=== PATIENT | male | born 1985 | race Caucasian/White ===

== ENCOUNTER 2016-10-21 20:40 | Emergency (ER) | payer OTHER ==
[~2016-10-21] VITALS: Ht 175.3 cm; Wt 74.5 kg
[~2016-10-21 20:40] MED LIST: ALBU8.5H3 INH; AZIT250T94 PO; CETI10CA PO; GUAI120S26 PO; IBUP-1542 PO
[2016-10-21 21:05] VITALS: Ht 175.3 cm; Wt 74.5 kg
--- NOTE | 2016-10-21 22:43 | ERA ---
ER Documentation Chief Complaint Date/Time DATE: 10/21/16 TIME: 22:43 Chief Complaint Shortness of breath HPI The patient is a 37-year-old male, presenting to the ER because of shortness of breath for the last 2 hours prior to arrival while he was watching TV. He felt better now, denies similar symptoms previously. He was seen in the ER yesterday and today for acute bronchitis with Zithromax, Flonase, Zyrtec and cough medicine. He denies any chest pain, pleuritic chest pain, chest pain with exertion of vomiting or diaphoresis, denies abdominal pain, vomiting, dysuria, diarrhea Past medical history: Anxiety Past surgical history: None ROS All systems reviewed and are negative except as per history of present illness. Medications Home Meds Discontinued Scripts Azithromycin* (Zithromax*) 250 Mg Tablet, 250 MG PO .ZPACK DIRECTED, #6 TAB TAKE 500 MG (2 TABS) THE FIRST DAY THEN 250 MG (1 TAB) DAYS 2-5 Prov:QUINTON OTERO NP 10/20/16 Albuterol Sulfate* (Proair HFA*) 8.5 Gm Hfa.aer.ad, 2 PUFF INH Q4H Y for WHEEZING AND SOB, #1 INHALER Prov:QUINTON OTERO NP 10/20/16 Ibuprofen* (Motrin*) 600 Mg Tab, 600 MG PO Q6H Y for PAIN AND OR ELEVATED TEMP, #30 TAB Prov:QUINTON OTERO NP 10/20/16 Cetirizine Hcl* (Zyrtec*) 10 Mg Capsule, 10 MG PO DAILY, #30 TAB.CHEW Prov:QUINTON OTERO NP 10/20/16 Mqowwihleez-Y-Lwnlfdtpdb Hb* (Guaifenesin* DM Syrup) 120 Ml Syrup, 10 ML PO Q4H Y for COUGH, #120 ML Prov:QUINTON OTERO NP 10/20/16 Allergies Allergies: Coded Allergies: No Known Allergy (Unverified , 10/21/16) PMhx/Soc Medical and Surgical Hx: pt denies Medical Hx, pt denies Surgical Hx History of Surgery: No Anesthesia Reaction: No Hx Neurological Disorder: No Hx Respiratory Disorders: No Hx Cardiac Disorders: No Hx Psychiatric Problems: No Hx Miscellaneous Medical Probl: No Hx Alcohol Use: No Hx Substance Use: No Hx Tobacco Use: Yes Smoking Status: Current every day smoker Physical Exam Vitals Vital Signs Date Time Temp Pulse Resp B/P Pulse Ox O2 Delivery O2 Flow Rate FiO2 10/22/16 01:59 97.6 79 18 108/54 100 Room Air 10/21/16 21:05 98.2 81 20 130/82 97 Physical Exam Const: No acute distress. Head: Atraumatic. Eyes: Normal Conjunctiva. ENT: Normal External Ears, Nose and Mouth. Neck: Full range of motion. No meningismus. Resp: Clear to auscultation bilaterally. Cardio: Regular rate and rhythm. Abd: Soft, non distended, normal bowel sounds, non tender. Skin: No petechiae or rashes. Back: No midline or flank tenderness. Ext: No cyanosis, or edema. Neur: Awake and alert. No focal deficit Psych: Normal Mood and Affect. Result Diagram: 10/21/16 2321 10/21/16 2321 Results 24 hrs Laboratory Tests Test 10/21/16 23:21 White Blood Count 9.210^3/ul Red Blood Count 4.9110^6/ul Hemoglobin 14.2g/dl Hematocrit 40.8% Mean Corpuscular Volume 83.1fl Mean Corpuscular Hemoglobin 28.9pg Mean Corpuscular Hemoglobin Concent 34.8g/dl Red Cell Distribution Width 12.5% Platelet Count 69649^3/UL Mean Platelet Volume 9.9fl Neutrophils % 60.3% Lymphocytes % 28.7% Monocytes % 7.2% Eosinophils % 2.7% Basophils % 1.0% Nucleated Red Blood Cells % 0.0/100WBC Neutrophils # 5.510^3/ul Lymphocytes # 2.610^3/ul Monocytes # 0.710^3/ul Eosinophils # 0.310^3/ul Basophils # 0.110^3/ul Nucleated Red Blood Cells # 0.010^3/ul D-Dimer 443.37ng/ml D-Dimer Comment Sodium Level 143mmol/L Potassium Level 4.0mmol/L Chloride Level 100mmol/L Carbon Dioxide Level 28mmol/L Anion Gap 19 Blood Urea Nitrogen 8mg/dl Creatinine 0.79mg/dl Glucose Level 118mg/dl Calcium Level 9.1mg/dl Urine Opiates Screen Negative Urine Barbiturates Negative Urine Amphetamines Screen Negative Urine Benzodiazepines Screen Negative Urine Cocaine Screen Negative Urine Cannabinoids Negative Ethyl Alcohol Level < 10.0mg/dl Procedures/[facility] [address] [address] Radiology Main Line: [phone] DIAGNOSTIC IMAGING REPORT Patient: EMILIA HICKMAN : 1985 Age: 31 Sex: M MR #: [id number] DOS: 10/21/16 2300 Ordering MD: MARY MISHRA MD Location: E/R Room/Bed: PROCEDURE: Portable chest x-ray. CLINICAL INDICATION: 31-year-old male. Shortness of breath.. TECHNIQUE: Portable AP view of the chest. COMPARISON: None. FINDINGS: Cardiomediastinal contours are normal. Lungs are clear.. Negative for pleural effusion or pneumothorax.. No acute bony abnormality. IMPRESSION: Negative for evidence of acute chest process. RPTAT: HCTS Physician Jaquelin Date Time Electronically viewed and signed by Physician Jaquelin on 10/21/2016 23: 44 CS/ CC: MARY MISHRA MD MEDICAL MAKING DECISION: The patient is a 37-year-old male, presenting to the ER because of acute dyspnea most likely due to acute anxiety. He has been stable in emergency department and is stable for outpatient follow-up The differential diagnoses considered include but are not limited to asthma, COPD, pneumonia, pulmonary embolus, pleural effusion, congestive heart failure. Departure Diagnosis: Primary Impression: Dyspnea Additional Impression: Anxiety Comments The patient's blood pressure was elevated (>120/80) but appears stable without evidence of hypertension emergency or urgency. The patient was counseled about the risks of hypertension and urged to pursue outpatient monitoring and therapy within a week with their primary care physician. MARY MISHRA MD Oct 21, 2016 22:43
[2016-10-21 23:41] LABS: BASOPHIL # 0.1 10^3/ul (0.0-0.1); EOSINOPHILS # 0.3 10^3/ul (0.0-0.5); EOSINOPHILS % 2.7 % (0.0-7.0); HEMATOCRIT 40.8 % (42.0-52.0); HEMOGLOBIN 14.2 g/dl (14.0-18.0); LYMPHOCYTES # 2.6 10^3/ul (0.8-2.9); LYMPHOCYTES % 28.7 % (15.0-51.0); MEAN CORPUSCULAR HEMOGLOBIN 28.9 pg (29.0-33.0); MEAN CORPUSCULAR HGB CONC 34.8 g/dl (32.0-37.0); MEAN CORPUSCULAR VOLUME 83.1 fl (82.0-101.0); MEAN PLATELET VOLUME 9.9 fl (7.4-10.4); MONOCYTE # 0.7 10^3/ul (0.3-0.9); MONOCYTES % 7.2 % (0.0-11.0); NEUTROPHIL # 5.5 10^3/ul (1.6-7.5); NEUTROPHILS % 60.3 % (39.0-77.0); PLATELET COUNT 265 10^3/UL (140-415); RED BLOOD COUNT 4.91 10^6/ul (4.70-6.10); RED CELL DISTRIBUTION WIDTH 12.5 % (11.5-14.5); WHITE BLOOD COUNT 9.2 10^3/ul (4.8-10.8)
--- NOTE | 2016-10-21 23:44 | RADRPT ---
PROCEDURE: Portable chest x-ray. CLINICAL INDICATION: 31-year-old male. Shortness of breath.. TECHNIQUE: Portable AP view of the chest. COMPARISON: None. FINDINGS: Cardiomediastinal contours are normal. Lungs are clear.. Negative for pleural effusion or pneumothorax.. No acute bony abnormality. IMPRESSION: Negative for evidence of acute chest process. RPTAT: HCTS Physician Jaquelin Date Time Electronically viewed and signed by Karly Stone Physician on 10/21/2016 23:44 CS/
[2016-10-22 00:03] LABS: D-DIMER 443.37 ng/ml (<460)
[2016-10-22 00:05] LABS: ANION GAP 19 (8-16); BLOOD UREA NITROGEN 8 mg/dl (7-20); CALCIUM 9.1 mg/dl (8.4-10.2); CARBON DIOXIDE 28 mmol/L (21-31); CHLORIDE 100 mmol/L (97-110); CREATININE 0.79 mg/dl (0.61-1.24); GLUCOSE 118 mg/dl (70-220); SODIUM 143 mmol/L (135-144)
[2016-10-22 00:08] LABS: BARBITURATES Negative (NEGATIVE); BENZODIAZEPINES Negative (NEGATIVE); CANNABINOIDS Negative (NEGATIVE); COCAINE Negative (NEGATIVE); ETHANOL < 10.0 mg/dl; OPIATES Negative (NEGATIVE)
[2016-10-22 01:59] VITALS: BP 108/54; PULSE 79; RESP 18; TEMP 97.6
== END 2016-10-22 02:20 | disposition home or self-care (01) ==
LOC: E/R 20:40 → EDBD 20:40 → E/R 10-22 02:20
DX: R06.00 Dyspnea, unspecified (principal); F41.9 Anxiety disorder, unspecified; F17.210 Nicotine dependence, cigarettes, uncomplicated
CPT/HCPCS: 36415; 71010; 80048; 80306; 80307; 85025; 85378; 93005; Z7502

== ENCOUNTER 2016-11-01 15:20 | Emergency (ER) | payer OTHER ==
[~2016-11-01] VITALS: Ht 175.3 cm; Wt 76.0 kg
[~2016-11-01 15:20] MED LIST changes: +CYCL-319 PO
[2016-11-01 15:22] VITALS: Ht 175.3 cm; Wt 76.0 kg
--- NOTE | 2016-11-01 18:45 | ERD ---
ER Documentation Chief Complaint Date/Time DATE: 11/01/16 TIME: 18:42 Chief Complaint Complains of pain to both eyes x 1 week HPI This patient is a 31-year-old male with no significant medical history presenting to the emergency department with complaints of vitreous floaters in his eyes bilaterally. He has noticed these intermittently for 1 week and states they are worse when he looks around rapidly. Symptoms are mild. He denies any visual changes, double vision, seeing taylor, feeling curtain going over his eyes, fevers, chills, redness to his eyes, or other symptoms currently. ROS All systems reviewed and are negative except as per history of present illness. Medications Home Meds Active Scripts Cyclobenzaprine Hcl* (Cyclobenzaprine Hcl*) 10 Mg Tablet, 10 MG PO TID, #15 TAB Prov:QUINTON OTERO SHADOWGRAPH SCALE OPERATOR 10/27/16 Ibuprofen* (Motrin*) 600 Mg Tab, 600 MG PO Q6H Y for PAIN AND OR ELEVATED TEMP, #30 TAB Prov:QUINTON OTERO SHADOWGRAPH SCALE OPERATOR 10/27/16 Allergies Allergies: Coded Allergies: No Known Allergy (Unverified , 10/26/16) PMhx/Soc Medical and Surgical Hx: pt denies Medical Hx, pt denies Surgical Hx History of Surgery: No Anesthesia Reaction: No Hx Neurological Disorder: No Hx Respiratory Disorders: No Hx Cardiac Disorders: No Hx Psychiatric Problems: No Hx Miscellaneous Medical Probl: No Hx Alcohol Use: No (Denies) Hx Substance Use: No (Denies) Hx Tobacco Use: No Smoking Status: Never smoker Physical Exam Vitals Vital Signs Date Time Temp Pulse Resp B/P Pulse Ox O2 Delivery O2 Flow Rate FiO2 11/01/16 15:22 98.8 96 20 136/65 96 Physical Exam Const: Nontoxic, well-appearing male in no acute distress. Head: Atraumatic Eyes: Normal Conjunctiva. EOMs intact bilaterally. No visual acuity deficits noted ENT: Normal External Ears, Nose and Mouth. Neck: Full range of motion..~ No meningismus. Skin: No petechiae or rashes Back: No midline or flank tenderness Ext: No cyanosis, or edema Neur: Awake and alert Psych: Normal Mood and Affect Procedures/MDM 31-year-old male presenting to the emergency department with complaints of vitreous floaters in his eyes bilaterally intermittently for the past week. He denies any visual changes, double vision, seeing black spots. I have low suspicion for conjunctivitis, periorbital cellulitis, retinal detachment, acute angle-closure glaucoma, or other emergencies. The patient was given counseling regarding vitreous floaters and he may use ligy-jio-rxtvavo eyedrops as needed for eye irritation. He understood the discharge plan and diagnosis. Strict ER return precautions were discussed. Patient was stable prior to discharge. Departure Diagnosis: Primary Impression: Vitreous floaters of both eyes Condition: Fair Patient Instructions: What Are Flashes and Floaters? Referrals: COMMUNITY CLINICS YOU HAVE RECEIVED A MEDICAL SCREENING EXAM AND THE RESULTS INDICATE THAT YOU DO NOT HAVE A CONDITION THAT REQUIRES URGENT TREATMENT IN THE EMERGENCY DEPARTMENT. FURTHER EVALUATION AND TREATMENT OF YOUR CONDITION CAN WAIT UNTIL YOU ARE SEEN IN YOUR DOCTORS OFFICE WITHIN THE NEXT 1-2 DAYS. IT IS YOUR RESPONSIBILITY TO MAKE AN APPOINTMENT FOR FOLOW-UP CARE. IF YOU HAVE A PRIMARY DOCTOR --you should call your primary doctor and schedule an appointment IF YOU DO NOT HAVE A PRIMARY DOCTOR YOU CAN CALL OUR PHYSICIAN REFERRAL HOTLINE AT IF YOU CAN NOT AFFORD TO SEE A PHYSICIAN YOU CAN CHOSE FROM THE FOLLOWING [facility] [address] [facility]. [facility] [address] [facility]. [facility] [address] [facility] [facility] [address] [facility]. [facility] [address] [facility] [facility]. [address] [facility]. [facility] Hours: Mon - Fri 9:00 AM - 5:00 PM Additional Instructions: Follow up with your PCP within the next 1-3 days for a repeat evaluation. If you require a referral to a specialist, your Primary Care Provider may be able to provide this for you. In most patient cases, a referral is not required. If you have further questions regarding this matter, please ask your Primary Care Provider. Return the the emergency department immediately if symptoms worsen or change. If you have any questions regarding medications, ask your pharmacist or us before you leave. If any adverse reactions, occur while taking your medications, discontinue the treatment and return to the emergency department immediately. If any new or worsening symptoms, uncontrolled fevers, or other unexplained symptoms occur, return to the emergency department immediately. Take your medications as directed, and complete the entire course of treatment. JELLY JAMES PA-C Nov 01, 2016 18:45
== END 2016-11-01 19:46 | disposition left against medical advice (07) ==
LOC: FTE 15:20
DX: H43.393 Other vitreous opacities, bilateral (principal)
CPT/HCPCS: 99282

== ENCOUNTER 2016-11-09 14:25 | Emergency (ER) | payer SELFPAY ==
[~2016-11-09] VITALS: Wt 76.0 kg
[~2016-11-09 14:25] MED LIST changes: -ALBU8.5H3 INH; -AZIT250T94 PO; -CETI10CA PO; -GUAI120S26 PO
== END 2016-11-09 16:25 | disposition left against medical advice (07) ==
LOC: FTE 14:25
DX: Z53.21 Procedure and treatment not carried out due to patient leaving prior to being seen by health care provider (principal)

== ENCOUNTER 2016-11-10 21:18 | Emergency (ER) | payer SELFPAY ==
[~2016-11-10] VITALS: Ht 175.3 cm; Wt 75.5 kg
[2016-11-10 22:04] VITALS: Ht 175.3 cm; Wt 75.5 kg
== END 2016-11-10 22:44 | disposition left against medical advice (07) ==
LOC: FTE 21:18
DX: Z53.21 Procedure and treatment not carried out due to patient leaving prior to being seen by health care provider (principal)

== ENCOUNTER 2016-11-15 14:58 | Emergency (ER) | payer OTHER ==
[~2016-11-15] VITALS: Ht 180.3 cm; Wt 77.0 kg
[2016-11-15 15:00] VITALS: Ht 180.3 cm; Wt 77.0 kg
--- NOTE | 2016-11-15 16:03 | ERD ---
ER Documentation Chief Complaint Date/Time DATE: 11/15/16 TIME: 16:00 Chief Complaint SOB X MANY WEEKS WHEN SMOKING CIGARETTES HPI This a 31-year-old male who presents emergency department today complaining of intermittent shortness of breath. States he thinks he has anxiety. States he "wants his lungs checked out".States he smokesCigarettes regularly but he is trying to quit. States he also has left ankle pain and thinks he injured it while skateboarding. States he is not currently working because he has some bursitis in his leg and he is going to physical therapy. Denies any cough, fevers or chills. ROS All systems reviewed and are negative except as per history of present illness. Medications Home Meds Active Scripts Naproxen* (Naprosyn*) 500 Mg Tablet, 500 MG PO BID Y for PAIN AND/OR INFLAMMATION, #30 TAB Prov:DAISY CASTELLON PA-C 11/15/16 Cyclobenzaprine Hcl* (Cyclobenzaprine Hcl*) 10 Mg Tablet, 10 MG PO TID, #15 TAB Prov:QUINTON OTERO NP 10/27/16 Ibuprofen* (Motrin*) 600 Mg Tab, 600 MG PO Q6H Y for PAIN AND OR ELEVATED TEMP, #30 TAB Prov:QUINTON OTERO NP 10/27/16 Allergies Allergies: Coded Allergies: No Known Allergy (Unverified , 10/26/16) PMhx/Soc History of Surgery: No Anesthesia Reaction: No Hx Neurological Disorder: No Hx Respiratory Disorders: No Hx Cardiac Disorders: No Hx Psychiatric Problems: No Hx Miscellaneous Medical Probl: No Hx Alcohol Use: No (Denies) Hx Substance Use: No (Denies) Hx Tobacco Use: Yes Smoking Status: Current every day smoker Physical Exam Vitals Vital Signs Date Time Temp Pulse Resp B/P Pulse Ox O2 Delivery O2 Flow Rate FiO2 11/15/16 15:00 98.9 86 18 132/84 98 Physical Exam Const: Talkative, no acute distress Head: Atraumatic Eyes: Normal Conjunctiva ENT: Normal External Ears, Nose and Mouth. Neck: Full range of motion..~ No meningismus. Resp: Clear to auscultation bilaterally. No absent breath sounds. No wheezing. Cardio: Regular rate and rhythm, no murmurs Abd: Soft, non tender, non distended. Normal bowel sounds Skin: No petechiae or rashes Back: No midline or flank tenderness Ext: No cyanosis, or edema. Left ankle with no obvious deformity. No effusion. No ecchymosis. Tenderness to palpation syndesmosis. Pulses 2+. Distal neurovascularly intact. Neur: Awake and alert Psych: Normal Mood and Affect Results 24 hrs DIAGNOSTIC IMAGING REPORT Patient: EMILIA HICKMAN : 1985 Age: 31 Sex: M MR #: [id number] DOS: 11/15/16 0000 Ordering MD: DAISY CASTELLON PA-C Location: FTE Room/Bed: PROCEDURE: XR Ankle. CLINICAL INDICATION: 31 years of age, male. Skateboarding injury. Pain.. TECHNIQUE: Three views of the left ankle. COMPARISON: None available. FINDINGS: There may be minimal depression of the articular surface at the medial aspect of the talar dome that may be due to an age indeterminate osteochondral injury. No other evidence of acute fracture identified. Normal alignment on this non- stressed view. Negative for a sizable ankle joint effusion. Negative for significant soft tissue swelling.. IMPRESSION: Possible small osteochondral lesion medial talar dome that is age indeterminate. If symptoms persist, this could better be evaluated with MRI. No other evidence of acute fracture.. RPTAT: HCTS Physician Jaquelin Date Time Electronically viewed and signed by Physician Jaquelin on 11/15/2016 16: 30 CS/ CC: DAISY CASTELLON PA-C Procedures/MDM This is a 31-year-old male who presents the emergency department today complaining of intermittent shortness of breath and left ankle pain. Patient denies any shortness of breath currently and he may be having anxiety related symptoms. Patient was counseled on smoking cessation for greater than 3 minutes. Patient is afebrile and otherwise well-appearing. His oxygen saturations 98%. I do not feel the patient requires a chest x-ray at this time. Upon review of patient's medical records patient had a chest x-ray for same complaints less than 1 month ago and his chest x-ray was negative. I do have low suspicion for pneumonia, PE, abscess, pleural effusion, pneumothorax. Patient is very talkative in the exam room. Patient was also complaining of left ankle pain that he thinks he injured while skateboarding. I did agree to do an x-ray given the patient's report of trauma. Per the radiology report images of the left ankle shows a possible small osteochondral lesion at the medial talar dome that is age-indeterminate. There is no evidence of acute fracture. No joint effusion. No soft tissue swelling. Patient's ankle pain appears to be somewhat chronic in nature. I do not feel that he requires crutches or narcotics for pain. Patient was given a prescription for Naprosyn. He was instructed to follow-up with his primary care doctor for referral for physical therapy for his ankle as well as to help address his anxiety symptoms. At this time the patient is stable for discharge and outpatient management. Patient should follow up with their PCP in the next 1-2 days. They may return to the emergency department sooner for any persistent or worsening of symptoms. Patient understood and agreed with the plan. Departure Diagnosis: Primary Impression: Shortness of breath Additional Impression: Ankle pain Chronicity: chronic Laterality: left Qualified Code: M25.572 - Chronic pain of left ankle Condition: DAISY Funez PA-C Nov 15, 2016 16:03
--- NOTE | 2016-11-15 16:30 | RADRPT ---
PROCEDURE: XR Ankle. CLINICAL INDICATION: 31 years of age, male. Skateboarding injury. Pain.. TECHNIQUE: Three views of the left ankle. COMPARISON: None available. FINDINGS: There may be minimal depression of the articular surface at the medial aspect of the talar dome that may be due to an age indeterminate osteochondral injury. No other evidence of acute fracture identi fied. Normal alignment on this non-stressed view. Negative for a sizable ankle joint effusion. Neg ative for significant soft tissue swelling.. IMPRESSION: Possible small osteochondral lesion medial talar dome that is age indeterminate. If symptoms persist , this could better be evaluated with MRI. No other evidence of acute fracture.. RPTAT: HCTS Physician Jaquelin Date Time Electronically viewed and signed by Physician Jaquelin on 11/15/2016 16:30 /
[2016-11-15] MEDS ORDERED: NAPR-260 PO (16:34)
[2016-11-16] MEDS ORDERED: LORA1TAB PO (10:06)
== END 2016-11-15 16:43 | disposition home or self-care (01) ==
LOC: FTE 14:58
DX: R06.02 Shortness of breath (principal); M25.572 Pain in left ankle and joints of left foot; F17.210 Nicotine dependence, cigarettes, uncomplicated
CPT/HCPCS: 73610; Z7502

== ENCOUNTER 2016-11-16 09:26 | Emergency (ER) | payer OTHER ==
[~2016-11-16] VITALS: Ht 162.6 cm; Wt 72.0 kg
[~2016-11-16 09:26] MED LIST changes: +NAPR-260 PO
[2016-11-16 09:28] VITALS: Ht 162.6 cm; Wt 72.0 kg
--- NOTE | 2016-11-16 10:04 | ERD ---
ER Documentation Chief Complaint Date/Time DATE: 11/16/16 TIME: 10:02 Chief Complaint palpitations onset 1 hr ago HPI 31-year-old male who presented emergency department for palpitations started an hour. Denies sweating. Stated that he has been on a lot of stress for the past few days. Denies headache, dizziness, blurry vision, neck pain, shoulder pain, chest pain , abdominal pain, nausea, vomiting, diarrhea, constipation, loss of bowel control, urinary symptoms, trauma, numbness or tingling sensation, recent travel , difficulty breathing, shortness of breath, recent exposure to any illness, recent antibiotics in the last 3 months, fever, chills. Denies auditory/visual hallucinations/delusions. Not suicidal. Not homicidal. Has the capacity to decide for himself. Has good support system at home. No known drug allergies. No past medical history. No surgical history. No family history of heart attack before age 50. No family history of stroke before the age of 50. Social: Not working at this time. Smokes half a pack of cigarettes a day. Occasional drink alcoholic beverages. Denies use of illegal drugs. Physical exam is unremarkable. EKG was done and revealed sinus tachycardia with a ventricular rate of 109 bpm. No evidence of ischemia. No evidence of acute myocardial infarction. Treatment: Ativan 1 mg 1 p.o. plan of care was discharged patient in follow-up with his primary care physician the next 48-72 hours. Also prescribed Ativan 1 mg with 7 tablets. ROS All systems reviewed and are negative except as per history of present illness. Medications Home Meds Active Scripts Lorazepam* (Lorazepam*) 1 Mg Tablet, 1 MG PO Q8, #3 TAB Prov:DANY TORRES 11/16/16 Naproxen* (Naprosyn*) 500 Mg Tablet, 500 MG PO BID Y for PAIN AND/OR INFLAMMATION, #30 TAB Prov:DAISY CASTELLON PA-C 11/15/16 Cyclobenzaprine Hcl* (Cyclobenzaprine Hcl*) 10 Mg Tablet, 10 MG PO TID, #15 TAB Prov:QUINTON OTERO NP 10/27/16 Ibuprofen* (Motrin*) 600 Mg Tab, 600 MG PO Q6H Y for PAIN AND OR ELEVATED TEMP, #30 TAB Prov:QUINTON OTERO NP 10/27/16 Allergies Allergies: Coded Allergies: No Known Allergy (Unverified , 10/26/16) PMhx/Soc History of Surgery: No Anesthesia Reaction: No Hx Neurological Disorder: No Hx Respiratory Disorders: No Hx Cardiac Disorders: No Hx Psychiatric Problems: No Hx Miscellaneous Medical Probl: No Hx Alcohol Use: No (Denies) Hx Substance Use: No (Denies) Hx Tobacco Use: Yes Smoking Status: Current every day smoker Physical Exam Vitals Vital Signs Date Time Temp Pulse Resp B/P Pulse Ox O2 Delivery O2 Flow Rate FiO2 11/16/16 09:28 109 18 133/84 99 Physical Exam CONSTITUTIONAL: Well-appearing; well-nourished; in no apparent distress. HEAD: Normocephalic; atraumatic. EYES: Conjunctiva clear, sclera non-icteric, EOM intact. PERRL Ears: Hearing intact. EACs clear, TMs non-bulging, non-inflamed, translucent & mobile, ossicles normal appearance, No obstructions, no erythema, no discharges Nose: No obstructions. No polyps. No external lesions. Mucosa non-inflamed. No external lesions, septum and turbinates normal. No rhinorrhea. No discharges. Frontal sinus is non-tender to palpation. Maxillary sinus is non-tender to palpation. MOUTH: Moist mucous membranes, no lesion, no obstructions, no vesicles, no thrush, patent airway Throat: Uvula in midline. Right tonsil is +1 with no erythema, no exudate. Left tonsil is +1 with no erythema, no exudate. Tolerating secretions well. Good gag reflex. Patent airway. Neck: Supple, without lesions, bruits, or adenopathy. No mass. Thyroid non- enlarged and non-tender to palpation. CHEST: Symmetrical chest. Respirations even and not labored. No retractions noted. CARDIOVASCULAR: Normal S1, S2. RRR. No murmurs, gallops. RESPIRATORY: Normal chest excursion with respiration; breath sounds clear and equal bilaterally; no wheezes, rhonchi, or rales. Breathing even and unlabored. Speaking in clear, full, and complete sentences w/ ease. ABDOMEN: Normal bowel sounds normal. Soft, round, non-distended, non-guarding, no tenderness, no rebound, no organomegaly, no masses, no pulsating abdominal mass. No hernia. No peritoneal signs. : No CVA tenderness. BACK: Symmetrical shoulder. Spine is midline without deformity, tenderness. No evidence of trauma or deformity. PELVIS: Stable pelvis. No evidence of trauma or deformity. MUSCULOSKELETAL: Normal gait and station. No misalignment, asymmetry, crepitation, defects, tenderness, masses, effusions, decreased range of motion, instability, atrophy or abnormal strength or tone in the head, neck, spine, ribs , pelvis or extremities. No calf tenderness. NEUROVASCULAR: Distal pulses are present. Pedal pulse are present, equal, and normal. Capillary refills are < 2 seconds. NEUROLOGIC: Alert and oriented x4. Speaks full and clear sentences. Cranial Nerves II-XII normal. Sensation to pain, touch, and proprioception normal. Grossly unremarkable. No neurologic deficits. Romberg test is negative. PSYCHOLOGICAL: The patients mood and manner are appropriate. No hallucinations , delusions. Not SI. Not HI. Has the capacity to decide for self SKIN: Normal for age and ethnicity; warm; dry; good turgor; no apparent lesions or exudates. No rashes, hives, discoloration. Intact. Results 24 hrs Current Medications Medications (Trade) Dose Ordered Sig/Joaquin Route PRN Reason Start Time Stop Time Status Last Admin Dose Admin Lorazepam (Ativan) 1 mg ONCE ONCE PO 11/16/16 10:30 11/16/16 10:30 DC 11/16/16 10:08 Procedures/MDM Examination: Unremarkable examination except Disease process, medical treatment was explained to the patient and family member. They verbalized understanding and agreed with the diagnostic tests, medical treatment, and follow-up care. EKG: EKG was done and revealed sinus tachycardia with a ventricular rate of 109 bpm. No evidence of ischemia. No evidence of acute myocardial infarction. Treatment: Ativan 1 mg 1 p.o. plan of care was discharged patient in follow-up with his primary care physician the next 48-72 hours. Also prescribed Ativan 1 mg with 7 tablets. Re-evaluation: Denies headache, dizziness, blurry vision, neck pain, shoulder pain, chest pain, back pain, abdominal pain, nausea, vomiting. No episode of emesis in the emergency department. Alert and oriented 4. Speaks full and clear sentences. Respirations even and unlabored. Lung sounds clear to auscultation. Active bowel sounds. There is no right upper/right lower/ epigastric/left upper/left lower abdominal tenderness and light and deep palpation. Negative on Rovsings sign. Negative [place] sign. Able to jump 5 times without developing right-sided abdominal pain. No peritoneal signs. Ambulatory with steady gait. No neurovascular deficits. No neurological deficits. Skin appears normal. Consultation: None. Differential diagnosis: Acute myocardial infarction versus acute coronary syndrome versus chest wall pain versus pneumonia versus anxiety. Medical decision making: Discharge with a final diagnosis of anxiety. Medications prescribed are the following: Ativan. Patient and family member are made aware of the side effects and adverse reactions of the medications prescribed. Instructed on when to seek emergent and medical attention in case allergic/anaphylactic reactions or severe side effects and or adverse reactions to medications. Patient and family member verbalized understanding. Patient instructed Instructed to follow-up with his PCP in 24-48 hours. Instructed to Call 911 for chest pain, shortness of breath. Advised to come back here in ED as soon as possible for severity of symptoms which includes but not limited to: any new symptoms; shortness of breath/difficulty of breathing; cardiovascular changes; severe gastrointestinal symptoms; signs and symptoms of bleeding and or infection; signs of compartment syndrome/neurovascular changes; neurological changes/deficits. Patient and family member verbalized understanding. Upon discharge, patient is alert and oriented x 4, speaks full and clear sentences, denies pain, has no neurological deficits, has no neurovascular deficits, difficulty of breathing. Breathing even and unlabored. Lung sounds are clear to auscultation. Not in distress. Appears comfortable. Ambulatory with steady gait. Appears satisfied with care provided here in ED. Departure Diagnosis: Primary Impression: Palpitations Additional Impression: Anxiety Condition: Stable Additional Instructions: Instructed to follow-up with his PCP in 24-48 hours. Instructed to Call 911 for chest pain, shortness of breath. Advised to come back here in ED as soon as possible for severity of symptoms which includes but not limited to: any new symptoms; shortness of breath/difficulty of breathing; cardiovascular changes; severe gastrointestinal symptoms; signs and symptoms of bleeding and or infection; signs of compartment syndrome/neurovascular changes; neurological changes/deficits. Patient and family member verbalized understanding. DANY TORRES Nov 16, 2016 10:04
[2016-11-16] MEDS ORDERED: LORA1TAB PO (10:06)
[2016-11-16] MEDS ORDERED: LORAZEPAM 1 MG TAB PO ONE (10:30)
== END 2016-11-16 10:18 | disposition home or self-care (01) ==
LOC: FTE 09:26
DX: R00.2 Palpitations (principal); F41.9 Anxiety disorder, unspecified; F17.210 Nicotine dependence, cigarettes, uncomplicated
CPT/HCPCS: 93005; Z7502; Z7610

== ENCOUNTER 2017-04-05 19:52 | Emergency (ER) | END 2017-04-05 21:15 | disposition left against medical advice (07) ==

== ENCOUNTER 2017-04-20 17:15 | Emergency (ER) | END 2017-04-20 22:11 | disposition home or self-care (01) ==

== ENCOUNTER 2018-08-06 11:21 | Emergency (ER) | payer MEDICAID, OTHER ==
[~2018-08-06] VITALS: Ht 170.2 cm; Wt 77.1 kg
[~2018-08-06 11:21] MED LIST changes: -CYCL-319 PO; +CYCL10TA7 PO; +LISI10TA2 PO; +LORA1TAB PO; -NAPR-260 PO; +NAPR-985 PO
[2018-08-06 11:24] VITALS: Ht 170.2 cm; Wt 77.1 kg
--- NOTE | 2018-08-06 12:19 | ERD ---
ER Documentation Chief Complaint Chief Complaint suicidal ideation , wants to cut himself with knife , lac on rt pinky HPI This is a 33-year-old male with no underlying past medical history. The patient indicates he recently returned to [place] from [place]. When he was in [place] he had a psychiatrist as he states he was having very bad anxiety. He indicates that over the past several months he is been feeling very depressed and hopeless as he is undergoing a significant amount of financial difficulties. The patient stated yesterday evening he was experiencing suicidal thoughts and ideations. He stated he wanted to kill himself by stabbing himself. He stated he cut his right pinky with a knife. He stated he also called his father to say belae. His father lives in [place] and his father pleaded with him to go to the hospital to seek help. The patient denies any illicit drug use. He uses medicinal marijuana. He denies alcohol use. He states he is never attempted suicide in the past. ROS All systems reviewed and are negative except as per history of present illness. Medications Home Meds Active Scripts Lisinopril* (Lisinopril*) 10 Mg Tablet, 10 MG PO DAILY, #30 TAB Prov:LENCHO REDMAN PA-C 04/20/17 Lorazepam* (Lorazepam*) 1 Mg Tablet, 1 MG PO Q8, #3 TAB Prov:DANY TORRES 11/16/16 Naproxen* (Naprosyn*) 500 Mg Tablet, 500 MG PO BID PRN for PAIN AND/OR INFLAMMATION, #30 TAB Prov:DAISY CASTELLON PA-C 11/15/16 Cyclobenzaprine Hcl* (Cyclobenzaprine Hcl*) 10 Mg Tablet, 10 MG PO TID, #15 TAB Prov:QUINTON OTERO NP 10/27/16 Ibuprofen* (Motrin*) 600 Mg Tab, 600 MG PO Q6H PRN for PAIN AND OR ELEVATED TEMP, #30 TAB Prov:QUINTON OTERO NP 10/27/16 Allergies Allergies: Coded Allergies: No Known Allergy (Unverified , 10/26/16) PMhx/Soc Medical and Surgical Hx: pt denies Medical Hx, pt denies Surgical Hx History of Surgery: No Anesthesia Reaction: No Hx Neurological Disorder: No Hx Respiratory Disorders: No Hx Cardiac Disorders: No Hx Psychiatric Problems: No Hx Miscellaneous Medical Probl: No Hx Alcohol Use: Yes Hx Substance Use: Yes (MARAJUANA) Hx Tobacco Use: Yes (PACK/DAY) Smoking Status: Current every day smoker Physical Exam Vitals Vital Signs Date Temp Pulse Resp B/P (MAP) Pulse Ox O2 O2 Flow FiO2 Time Delivery Rate 08/06/18 97.8 78 18 153/102 100 11:24 (119) Physical Exam Constitutional:Well-developed. Well-nourished. HEENT:Normocephalic. Atraumatic.Pupils were equal round reactive to light. Moist mucous membranes.No tonsillar exudates. Neck: No nuchal rigidity. No lymphadenopathy. No posterior cervical spine tenderness or step-offs. Respiratory: Not using accessory muscles of respiration.Lungs were clear to auscultation bilaterally. No rhonchi. No rales. No wheezing. Cardiovascular: Regular rate regular rhythm.No murmurs. No rubs were appreciated.S1, S2 normal. Distal pulses are palpable 2+ bilaterally. GI: Abdomen was soft. Nontender. Non Distended. No pulsatile abdominal masses or bruits. No rebound. No guarding. Bowel sounds were present and normal. Muscle skeletal: Full range of motion of both the upper and lower extremities bilaterally.Normal muscle tone.No assymetrical calf tenderness or swelling. Skin: No petechia, no purpura. No lesions on the palms or the soles of the feet. No maculopapular rash. Facial laceration over the right distal phalanx of the fifth digit with no exposure of the flexor extensor tendon, on the palmar surface. NEURO: Patient was alert, awake, orientated x3.No facial droop. Gait observed and normal with no ataxia.Speech had regular rate and rhythm. No focal neurological deficits. PSYCH: Patient was very polite compliant. Patient did express suicidal thoughts and ideations. No auditory tactile visual hallucinations. Results 24 hrs Laboratory Tests Test 08/06/18 12:05 White Blood Count Pending Red Blood Count Pending Hemoglobin Pending Hematocrit Pending Mean Corpuscular Volume Pending Mean Corpuscular Hemoglobin Pending Mean Corpuscular Hemoglobin Concent Pending Red Cell Distribution Width Pending Platelet Count Pending Mean Platelet Volume Pending Procedures/MDM The patient presented to the emergency department with an active suicidal ideation. My differential diagnosis included but was not limited to major depressive disorder, normal despondency, bipolar disorder, schizophrenia, anxiety disorder, borderline personality disorder, antisocial personality dis order, organic mental disorder, bereavement or alcohol or drug abuse. Ancillary lab work was obtained including blood alcohol level, drug screen and serum toxicology panel. The patient was provided a safe environment while in the emergency department with appropriate supervision. The patient will be seen and evaluated by the tele-psychiatrist. Departure Diagnosis: Primary Impression: Suicidal ideation Condition: KELLY Lopez MD August 06, 2018 12:19
--- NOTE | 2018-08-06 12:33 | PSY ---
Date/Time of Note Date/Time of Note DATE: 08/06/18 TIME: 15:31 Psychiatric Subjective Eval Consent Pt consented to telemedicine: Yes Subjective Evaluation Patient location: emergency Chief Complaint: suicidal ideation , wants to cut himself with knife , lac on rt pinky History of present illness HPI: 33 yo male clearly tells MD he wants to kill himself via stabbing self with his knife. Admits to thc use. Admits to depression. Denies psychosis Past Psych Hx: + ho suicide and admits PMHx: deniess meds: denies nkda MSE: cooperative, depressed, normal speech, organized, no delusions or avh +SI Imp: 33 yo male with si vol psych admit utox Medical history Problems Medical Problems: (1) Acute bronchitis Status: Acute (2) Ankle pain Status: Acute (3) Anxiety Status: Acute (4) Anxiety Status: Acute (5) Back pain Status: Acute (6) Dyspnea Status: Acute (7) Hypertension Status: Acute (8) Palpitations Status: Acute (9) Patient left after triage Status: Acute (10) Patient left without being seen Status: Acute (11) Patient left without being seen Status: Acute (12) Patient left without being seen Status: Acute (13) Shortness of breath Status: Acute (14) Suicidal ideation Status: Acute (15) Vitreous floaters of both eyes Status: Acute Allergies: Coded Allergies: No Known Allergy (Unverified , 10/26/16) Psychiatric Objective Eval Mental Status Examination: Laboratory Results Laboratory Tests Test 08/06/18 12:04 08/06/18 12:05 Urine Color COLORLESS Urine Clarity CLEAR Urine pH 6.0 Urine Specific [place] 1.001 Urine Ketones NEGATIVE mg/dL Urine Nitrite NEGATIVE mg/dL Urine Bilirubin NEGATIVE mg/dL Urine Urobilinogen NEGATIVE mg/dL Urine Leukocyte Esterase NEGATIVE Janeth/ul Urine Hemoglobin NEGATIVE mg/dL Urine Glucose NEGATIVE mg/dL Urine Total Protein NEGATIVE mg/dl White Blood Count 7.8 10^3/ul Red Blood Count 5.07 10^6/ul Hemoglobin 15.0 g/dl Hematocrit 43.7 % Mean Corpuscular Volume 86.2 fl Mean Corpuscular Hemoglobin 29.6 pg Mean Corpuscular Hemoglobin Concent 34.3 g/dl Red Cell Distribution Width 12.8 % Platelet Count 289 10^3/UL Mean Platelet Volume 9.8 fl Immature Granulocytes % 0.100 % Neutrophils % 59.5 % Lymphocytes % 26.4 % Monocytes % 10.0 % Eosinophils % 2.6 % Basophils % 1.4 % Nucleated Red Blood Cells % 0.0 /100WBC Immature Granulocytes # 0.010 10^3/ul Neutrophils # 4.7 10^3/ul Lymphocytes # 2.1 10^3/ul Monocytes # 0.8 10^3/ul Eosinophils # 0.2 10^3/ul Basophils # 0.1 10^3/ul Nucleated Red Blood Cells # 0.0 10^3/ul Assessment and Plan Recommendation/Plan Multiple antipsychotics: No Discharge Disposition: Psychiatric inpatient Legal Status: Voluntary YANDY MURPHY August 06, 2018 12:33
[2018-08-06] MEDS ORDERED: BUPR-75 PO (16:05)
--- NOTE | 2018-08-06 18:54 | QN ---
Documentation Comment Psychiatric Observation Note: Indication: Suicidal ideation Duration: Greater than 4 hours Family history: As documented in original HPI The patient was observed with serial exams over the above timeframe. The patient continued to be well-appearing, and observation continued without complication. All other needs have been met during emergency department stay. The patient has had a medical screening examination is medically cleared for psychiatric placement. Routine psychiatric medications ordered: Not requested by telemetry medicine psychiatry Hold status: Telemetry medicine psychiatry has recommended voluntary psychiatric placement Placement status: Pending placement. DENIZ DRIVER MD August 06, 2018 18:54
[2018-08-06 21:24] VITALS: BP 116/64; PULSE 53; RESP 16
[2018-08-07] MEDS ORDERED: IBUP800T48 PO (21:11)
[2018-08-07] MEDS ORDERED: CYCL10TA7 PO (21:11)
== END 2018-08-06 21:24 ==
LOC: E/R 11:21
DX: R45.851 Suicidal ideations (principal); F17.210 Nicotine dependence, cigarettes, uncomplicated
CPT/HCPCS: 36415; 80053; 80307; 81003; 85025; 85610; 85730

== ENCOUNTER 2018-08-07 20:32 | Emergency (ER) | payer MEDICAID ==
[~2018-08-07] VITALS: Ht 175.3 cm; Wt 78.0 kg
[~2018-08-07 20:32] MED LIST changes: +BUPR-75 PO; -CYCL10TA7 PO; -IBUP-1542 PO; -LISI10TA2 PO; -LORA1TAB PO; -NAPR-985 PO
[2018-08-07 20:34] VITALS: BP 148/84; PULSE 98; RESP 18; Ht 175.3 cm; Wt 78.0 kg
[2018-08-07] MEDS ORDERED: KETOROLAC 30 MG INJ IM STA (21:00)
[2018-08-07] MEDS ORDERED: IBUP800T48 PO (21:11)
[2018-08-07] MEDS ORDERED: CYCL10TA7 PO (21:11)
--- NOTE | 2018-08-07 21:12 | ERD ---
ER Documentation Chief Complaint Chief Complaint states stiff neck x 1 day, denies trauma also c/o right hip pain HPI 33-year-old male who states his neck hurt today after doing push-ups. He denies any other trauma. He has not taken any medication for his pain. Also states he has a history of bursitis in his right hip and states that he has pain there as well he is requesting prescription for Motrin to help with these symptoms. No injury or trauma. He is ambulatory. No fevers. ROS All systems reviewed and are negative except as per history of present illness. Medications Home Meds Active Scripts Ibuprofen* (Motrin*) 800 Mg Tab, 800 MG PO Q6, #30 TAB Prov:BUSTER VALENCIA PA-C 08/07/18 Cyclobenzaprine Hcl* (Cyclobenzaprine Hcl*) 10 Mg Tablet, 10 MG PO BID, #15 TAB Prov:BUSTER VALENCIA PA-C 08/07/18 Reported Medications Bupropion Hcl* (Wellbutrin XL*) 150 Mg Tab.sr.24h, 150 MG PO DAILY, TAB.SA 08/06/18 Discontinued Scripts Lisinopril* (Lisinopril*) 10 Mg Tablet, 10 MG PO DAILY, #30 TAB Prov:LENCHO REDMAN PA-C 04/20/17 Lorazepam* (Lorazepam*) 1 Mg Tablet, 1 MG PO Q8, #3 TAB Prov:DANY TORRES 11/16/16 Naproxen* (Naprosyn*) 500 Mg Tablet, 500 MG PO BID PRN for PAIN AND/OR INFLAMMATION, #30 TAB Prov:DAISY CASTELLON PA-C 11/15/16 Cyclobenzaprine Hcl* (Cyclobenzaprine Hcl*) 10 Mg Tablet, 10 MG PO TID, #15 TAB Prov:QUINTON OTERO NP 10/27/16 Ibuprofen* (Motrin*) 600 Mg Tab, 600 MG PO Q6H PRN for PAIN AND OR ELEVATED TEMP, #30 TAB Prov:QUINTON OTERO NP 10/27/16 Allergies Allergies: Coded Allergies: No Known Allergy (Unverified , 08/06/18) PMhx/Soc History of Surgery: Yes (L hip fx repair L orbit fx) Anesthesia Reaction: No Hx Neurological Disorder: No Hx Respiratory Disorders: No Hx Cardiac Disorders: No Hx Psychiatric Problems: No Hx Miscellaneous Medical Probl: Yes (bursitis of R hip) Hx Alcohol Use: Yes Hx Substance Use: Yes (MARAJUANA) Hx Tobacco Use: Yes (PACK/DAY) Smoking Status: Current every day smoker FmHx Family History: No diabetes Physical Exam Vitals Vital Signs Date Temp Pulse Resp B/P (MAP) Pulse Ox O2 O2 Flow FiO2 Time Delivery Rate 08/07/18 98.5 98 18 148/84 98 20:34 (105) Physical Exam INITIAL VITAL SIGNS: Reviewed by me GENERAL: Awake, alert and oriented x 4, well appearing, nontoxic, speaking in full sentences. No acute distress HEAD: Atraumatic NECK: Supple. No masses. Full range of motion. No meningismus. No midline tenderness. EYES: EOMI. PERRL. RESPIRATORY: Clear to auscultation bilaterally. Symmetric chest wall rise. No wheezing or rales. No accessory muscle use. CV: Regular rate and rhythm. No murmurs, rubs, or gallops. EXTREMITIES: No clubbing or cyanosis. No edema. Moving all extremities normally. BACK: No midline tenderness to palpation. No step-offs. Results 24 hrs Current Medications Medications Dose Sig/Joaquin Start Time Status Last (Trade) Ordered Route PRN Stop Time Admin Dose Reason Admin Ketorolac 30 mg ONCE STAT 08/07/18 DC 08/07/18 Tromethamine IM 21:00 21:07 (Toradol) 08/07/18 21:01 Procedures/MDM Patient has cervical strain as well as flareup of bursitis in the right hip. He was given Toradol and prescription for ibuprofen and Flexeril. Patient counseled regarding my diagnostic impression and care plan. Prior to discharge all questions answered. Pt agrees with treatment plan and understands strict return precautions. Pt is instructed to follow up with primary care provider within 24-48 hours. Precautionary instructions provided including instructions to return to the ER if not improving or for any worsening or changing symptoms or concerns. Departure Diagnosis: Primary Impression: Bursitis Additional Impression: Cervical strain Condition: Stable Patient Instructions: Neck Sprain/Strain Additional Instructions: Call your primary care doctor TOMORROW for an appointment during the next 1-2 days.See the doctor sooner or return here if your condition worsens before your appointment time. BUSTER VALENCIA PA-C August 07, 2018 21:12
== END 2018-08-07 21:30 | disposition home or self-care (01) ==
LOC: FTE 20:32
DX: S16.1XXA Strain of muscle, fascia and tendon at neck level, initial encounter (principal); F17.210 Nicotine dependence, cigarettes, uncomplicated; M70.71 Other bursitis of hip, right hip; X58.XXXA Exposure to other specified factors, initial encounter; Y92.9 Unspecified place or not applicable; Y93.9 Activity, unspecified
CPT/HCPCS: 96372; J1885; Z7502

== ENCOUNTER 2018-08-09 23:32 | Emergency (ER) | payer MEDICAID ==
[~2018-08-09] VITALS: Wt 76.7 kg
[~2018-08-09 23:32] MED LIST changes: +CYCL10TA7 PO; +IBUP800T48 PO
--- NOTE | 2018-08-10 00:59 | ERD ---
ER Documentation Chief Complaint Chief Complaint suicidal ideation: plans to 'stab myself'. hx anxiety, no hi no hallucinati HPI The patient is a 33-year-old male, presenting to the ER because of suicidal ideation, plan to stop himself, he was admitted to psychiatric hospital a week ago, is not taking the medication. He denies auditory/visual examination, homicidal ideation. He smokes and drinks and does marijuana Past medical history: Anxiety, hypertension, depression ROS All systems reviewed and are negative except as per history of present illness. Medications Home Meds Active Scripts Ibuprofen* (Motrin*) 800 Mg Tab, 800 MG PO Q6, #30 TAB Prov:BUSTER VALENCIA PA-C 08/07/18 Cyclobenzaprine Hcl* (Cyclobenzaprine Hcl*) 10 Mg Tablet, 10 MG PO BID, #15 TAB Prov:BUSTER VALENCIA PA-C 08/07/18 Reported Medications Bupropion Hcl* (Wellbutrin XL*) 150 Mg Tab.sr.24h, 150 MG PO DAILY, TAB.SA 08/06/18 Discontinued Scripts Lisinopril* (Lisinopril*) 10 Mg Tablet, 10 MG PO DAILY, #30 TAB Prov:LENCHO REDMAN PA-C 04/20/17 Lorazepam* (Lorazepam*) 1 Mg Tablet, 1 MG PO Q8, #3 TAB Prov:DANY TORRES 11/16/16 Naproxen* (Naprosyn*) 500 Mg Tablet, 500 MG PO BID PRN for PAIN AND/OR INFLAMMATION, #30 TAB Prov:DAISY CASTELLON PA-C 11/15/16 Cyclobenzaprine Hcl* (Cyclobenzaprine Hcl*) 10 Mg Tablet, 10 MG PO TID, #15 TAB Prov:QUINTON OTERO NP 10/27/16 Ibuprofen* (Motrin*) 600 Mg Tab, 600 MG PO Q6H PRN for PAIN AND OR ELEVATED TEMP, #30 TAB Prov:QUINTON OTERO BACK GRINDER 10/27/16 Allergies Allergies: Coded Allergies: No Known Allergy (Unverified , 08/10/18) PMhx/Soc History of Surgery: Yes (L hip fx repair L orbit fx) Anesthesia Reaction: No Hx Neurological Disorder: No Hx Respiratory Disorders: No Hx Cardiac Disorders: No Hx Psychiatric Problems: No Hx Miscellaneous Medical Probl: Yes (bursitis of R hip) Hx Alcohol Use: Yes Hx Substance Use: Yes (MARAJUANA) Hx Tobacco Use: Yes (PACK/DAY) Physical Exam Vitals Vital Signs Date Temp Pulse Resp B/P (MAP) Pulse Ox O2 O2 Flow FiO2 Time Delivery Rate 08/09/18 97.8 93 22 163/95 99 23:44 (117) Physical Exam Const: No acute distress. Head: Atraumatic. Eyes: Normal Conjunctiva. ENT: Normal External Ears, Nose and Mouth. Neck: Full range of motion. No meningismus. Resp: Clear to auscultation bilaterally. Cardio: Regular rate and rhythm. Abd: Soft, non distended, normal bowel sounds, non tender. Skin: No petechiae or rashes. Back: No midline or flank tenderness. Ext: No cyanosis, or edema. Neur: Awake and alert. No focal deficit Psych: Suicidal Result Diagram: 08/10/18 0046 08/10/18 0046 Results 24 hrs Laboratory Tests Test 08/10/18 00:46 White Blood Count 12.3 10^3/ul Red Blood Count 4.70 10^6/ul Hemoglobin 13.9 g/dl Hematocrit 39.9 % Mean Corpuscular Volume 84.9 fl Mean Corpuscular Hemoglobin 29.6 pg Mean Corpuscular Hemoglobin Concent 34.8 g/dl Red Cell Distribution Width 12.6 % Platelet Count 247 10^3/UL Mean Platelet Volume 9.9 fl Immature Granulocytes % 0.200 % Neutrophils % 67.4 % Lymphocytes % 23.5 % Monocytes % 6.0 % Eosinophils % 1.8 % Basophils % 1.1 % Nucleated Red Blood Cells % 0.0 /100WBC Immature Granulocytes # 0.030 10^3/ul Neutrophils # 8.3 10^3/ul Lymphocytes # 2.9 10^3/ul Monocytes # 0.7 10^3/ul Eosinophils # 0.2 10^3/ul Basophils # 0.1 10^3/ul Nucleated Red Blood Cells # 0.0 10^3/ul Urine Color COLORLESS Urine Clarity CLEAR Urine pH 6.0 Urine Specific [place] 1.002 Urine Ketones NEGATIVE mg/dL Urine Nitrite NEGATIVE mg/dL Urine Bilirubin NEGATIVE mg/dL Urine Urobilinogen NEGATIVE mg/dL Urine Leukocyte Esterase NEGATIVE Janeth/ul Urine Hemoglobin NEGATIVE mg/dL Urine Glucose 1+ mg/dL Urine Total Protein NEGATIVE mg/dl Sodium Level 138 mmol/L Potassium Level 3.4 mmol/L Chloride Level 103 mmol/L Carbon Dioxide Level 26 mmol/L Anion Gap 9 Blood Urea Nitrogen 18 mg/dl Creatinine 0.86 mg/dl Est Glomerular Filtrat Rate mL/min > 60 mL/min Glucose Level 133 mg/dl Calcium Level 9.0 mg/dl Total Bilirubin 0.6 mg/dl Direct Bilirubin 0.00 mg/dl Indirect Bilirubin 0.6 mg/dl Aspartate Amino Transf (AST/SGOT) 23 IU/L Alanine Aminotransferase (ALT/SGPT) 21 IU/L Alkaline Phosphatase 70 IU/L Total Protein 7.0 g/dl Albumin 4.3 g/dl Globulin 2.70 g/dl Albumin/Globulin Ratio 1.59 Salicylates Level < 1.0 mg/dl Urine Opiates Screen Negative Acetaminophen Level < 10.0 ug/ml Urine Barbiturates Negative Urine Amphetamines Screen Negative Urine Benzodiazepines Screen Negative Urine Cocaine Screen Negative Urine Cannabinoids Negative Ethyl Alcohol Level < 10.0 mg/dl Current Medications Medications Dose Sig/Joaquin Start Time Status Last (Trade) Ordered Route PRN Stop Time Admin Dose Reason Admin Potassium 20 meq ONCE ONCE 08/10/18 DC 08/10/18 Chloride PO 02:01 06:05 (Klor-Con 20) 08/10/18 02:02 Bupropion 150 mg AM PO 08/10/18 HCl 09:00 (Wellbutrin Xl) Procedures/MDM MDM: The patient is a 33-year-old male, presenting with acute suicidal ideation, acute hypokalemia. He was treated with potassium chloride 20 mg p.o. for acute hypokalemia Differentials include but not limited to medical noncompliance, acute anxiety attack, acute panic attack, decompensated psychiatric illness Departure Diagnosis: Primary Impression: Suicidal ideation Additional Impression: Hypokalemia Condition: Stable Comments I discussed the patient with telepsychiatrist, who recommended voluntary psychiatric admission, his recommended meds were ordered He is clear for psychiatric admission MARY MISHRA MD August 10, 2018 00:59
[2018-08-10] MEDS ORDERED: POTASSIUM CHLORIDE (SR) 20 MEQ TAB PO ONE (02:01)
--- NOTE | 2018-08-10 02:32 | PSY ---
Date/Time of Note Date/Time of Note DATE: 08/10/18 TIME: 02:29 Psychiatric Subjective Eval Consent Pt consented to telemedicine: Yes Subjective Evaluation Patient location: emergency Chief Complaint: suicidal ideation: plans to 'stab myself'. hx anxiety, no hi no hallucinati Medical history Problems Medical Problems: (1) Acute bronchitis Status: Acute (2) Ankle pain Status: Acute (3) Anxiety Status: Acute (4) Anxiety Status: Acute (5) Back pain Status: Acute (6) Bursitis Status: Acute (7) Cervical strain Status: Acute (8) Dyspnea Status: Acute (9) Hypertension Status: Acute (10) Palpitations Status: Acute (11) Patient left after triage Status: Acute (12) Patient left without being seen Status: Acute (13) Patient left without being seen Status: Acute (14) Patient left without being seen Status: Acute (15) Shortness of breath Status: Acute (16) Suicidal ideation Status: Acute (17) Vitreous floaters of both eyes Status: Acute Allergies: Coded Allergies: No Known Allergy (Unverified , 08/06/18) Psychiatric Objective Eval Mental Status Examination: Laboratory Results Laboratory Tests Test 08/10/18 00:46 White Blood Count 12.3 10^3/ul Red Blood Count 4.70 10^6/ul Hemoglobin 13.9 g/dl Hematocrit 39.9 % Mean Corpuscular Volume 84.9 fl Mean Corpuscular Hemoglobin 29.6 pg Mean Corpuscular Hemoglobin Concent 34.8 g/dl Red Cell Distribution Width 12.6 % Platelet Count 247 10^3/UL Mean Platelet Volume 9.9 fl Immature Granulocytes % 0.200 % Neutrophils % 67.4 % Lymphocytes % 23.5 % Monocytes % 6.0 % Eosinophils % 1.8 % Basophils % 1.1 % Nucleated Red Blood Cells % 0.0 /100WBC Immature Granulocytes # 0.030 10^3/ul Neutrophils # 8.3 10^3/ul Lymphocytes # 2.9 10^3/ul Monocytes # 0.7 10^3/ul Eosinophils # 0.2 10^3/ul Basophils # 0.1 10^3/ul Nucleated Red Blood Cells # 0.0 10^3/ul Urine Color COLORLESS Urine Clarity CLEAR Urine pH 6.0 Urine Specific [place] 1.002 Urine Ketones NEGATIVE mg/dL Urine Nitrite NEGATIVE mg/dL Urine Bilirubin NEGATIVE mg/dL Urine Urobilinogen NEGATIVE mg/dL Urine Leukocyte Esterase NEGATIVE Janeth/ul Urine Hemoglobin NEGATIVE mg/dL Urine Glucose 1+ mg/dL Urine Total Protein NEGATIVE mg/dl Sodium Level 138 mmol/L Potassium Level 3.4 mmol/L Chloride Level 103 mmol/L Carbon Dioxide Level 26 mmol/L Anion Gap 9 Blood Urea Nitrogen 18 mg/dl Creatinine 0.86 mg/dl Est Glomerular Filtrat Rate mL/min > 60 mL/min Glucose Level 133 mg/dl Calcium Level 9.0 mg/dl Total Bilirubin 0.6 mg/dl Direct Bilirubin 0.00 mg/dl Indirect Bilirubin 0.6 mg/dl Aspartate Amino Transf (AST/SGOT) 23 IU/L Alanine Aminotransferase (ALT/SGPT) 21 IU/L Alkaline Phosphatase 70 IU/L Total Protein 7.0 g/dl Albumin 4.3 g/dl Globulin 2.70 g/dl Albumin/Globulin Ratio 1.59 Salicylates Level < 1.0 mg/dl Urine Opiates Screen Negative Acetaminophen Level < 10.0 ug/ml Urine Barbiturates Negative Urine Amphetamines Screen Negative Urine Benzodiazepines Screen Negative Urine Cocaine Screen Negative Urine Cannabinoids Negative Ethyl Alcohol Level < 10.0 mg/dl Assessment and Plan Recommendation/Plan Discharge Disposition: Psychiatric inpatient Legal Status: Voluntary Assessment Additional comments: IDENTIFYING INFORMATION: 33 year old CM patient who is currently located at the hospital and for whom psychiatric consultation was requested. SOURCES OF INFORMATION: The patient who appears to be somewhat reliable and the medical records; the nursing staff. CHIEF COMPLAINT: "I felt like killing myself". HISTORY OF PRESENT ILLNESS: The patient was interviewed via telemedicine in the presence of and under the supervision of nursing staff of the hospital. The consent to conducting this interview via telemedicine was obtained by the nursing staff at the hospital. NITA Casey reports that the patient presented with SI with plan to stab self. H/o anxiety. The patient reports having SI with plan to stab self. Admits to depressed mood, The patient denies having AH, VH, delusions, insomnia, anhedonia. The patient denies using alcohol heavily or regularly. The patient denies using any other substances. In terms of past psychiatric history, the patient reports having a history of past psychiatric hospitalizations. The patient reports having a history of past suicide attempts. Past medication trials: does not remember. PAST MEDICAL HISTORY: none. CURRENT MEDICATIONS: none. ALLERGIES TO MEDICATIONS: NKDA. LABORATORY TESTS: CBC with WBCs 12.3, H/H 13.9/39.9, CMP with potassium 3.4, , UDS -, alcohol level not detected. SOCIAL HISTORY: homeless, single, no kids, not employed; on disability. REVIEW OF SYSTEMS: Constitutional (e.g., fever, weight loss): negative; Eyes, Ears, Nose, Mouth, Throat: negative; Cardiovascular: negative; Respiratory: negative; Gastrointestinal: negative; Genitourinary: negative; Musculoskeletal: negative; Integumentary (skin and/or breast): negative; Neurological: negative; Psychiatric: as per HPI; Endocrine: negative; Hematologic/Lymphatic: negative; Allergic/Immunologic: negative. MENTAL STATUS EXAMINATION: General Appearance and Behavior: Calm, cooperative with the interview, pleasant with the current interviewer, makes fair eye contact, fairly groomed, no abnormal movements noted, Speech: Regular rate, regular rhythm, normal latency, normal volume, somewhat decreased amount, Flow of thought: sequential, logical, goal-directed, Content of thought: no auditory hallucinations, no visual hallucinations, no delusions, positive for suicidal ideation; no homicidal ideation, Mood: "depressed", Affect: dysthymic, dysphoric, not reactive, Attention: normal based on the interview, Insight: fair, Judgment: poor, Memory: normal based on the interview, Sensorium: alert and oriented to person, place and date. ASSESSMENT: The patient's presentation and history are consistent with the diagnosis of unspecified mood disorder. The patient presents in a major depressive episode in the context of medication noncompliance, psychosocial stressors. No evidence of psychosis, july, hypomania on exam. PLAN: - Medication management: Would start wellbutrin XL 150 mg po qam. Would start haloperidol 5 mg IM PRN severe agitation q4 hours. Would start diphenhydramine 50 mg IM PRN severe agitation q4 hours. Would start lorazepam 2 mg IM PRN severe agitation q4 hours Will defer to the inpatient psychiatry team for other medication changes. - Labs: No other laboratory tests are needed at this time. - Psychotherapy: Provided supportive psychotherapy and psychoeducation. - Disposition: Would recommend voluntary admission to the inpatient psychiatric unit as the patient would benefit from such an intervention so long as the patient has been cleared medically for admission to psychiatry. The patient is agreeable to being hospitalized in the inpatient psychiatric unit at this time. Would place on suicide precautions. Discussed about the above plan with Dr. Vogel. GEREMIAS VILLALBA MD August 10, 2018 02:31
[2018-08-10] MEDS ORDERED: BUPROPION (XL) 150 MG TAB PO SCH (09:00)
[2018-08-10 10:56] VITALS: BP 119/76; PULSE 87; RESP 18
== END 2018-08-10 11:23 ==
LOC: E/R 23:32
DX: R45.851 Suicidal ideations (principal); I10 Essential (primary) hypertension; F17.210 Nicotine dependence, cigarettes, uncomplicated; E87.6 Hypokalemia
CPT/HCPCS: 36415; 80053; 80307; 81003; 85025; Z7502; Z7610